=== PATIENT | female | born 1955 | race Caucasian/White ===

== ENCOUNTER → 2021-03-01 13:41 | Outpatient (BNVA) | payer MEDICARE, SELFPAY | PROVIDERS: Visit Provider Nurse Practitioner Family | DX: E78.5 Hyperlipidemia, unspecified (principal); I10 Essential (primary) hypertension; Z86.39 Personal history of other endocrine, nutritional and metabolic disease | CPT/HCPCS: 80053; 80061 ==

== ENCOUNTER 2023-01-24 08:30 | Outpatient (CLI) | payer MEDICARE, SELFPAY ==
--- NOTE | 2023-01-24 08:41 | XR_ITS ---
WS: [id number] Exam: XR knee LT 3V* [id number] Date/Time of Exam: 01/24/2023 8:53 AM Reason For Exam: M25.569 - Pain in unspecified knee No acute fracture or dislocation. Moderate degenerative narrowing of the medial joint compartment. No joint effusion. Spurring of the posterior patella. XR/XR knee LT 3V* [id number] IMPRESSION: 1. Moderate degenerative changes. 2. No fracture or joint effusion.
--- NOTE | 2023-01-24 08:41 | XR_ITS ---
WS: [id number] Exam: XR knee RT 3V* [id number] Date/Time of Exam: 01/24/2023 8:53 AM Reason For Exam: M25.569 - Pain in unspecified knee No acute fracture or dislocation. Moderate narrowing of the medial joint compartment. Spurring of the posterior patella. No joint effusion. XR/XR knee RT 3V* [id number] IMPRESSION: 1. Moderate degenerative changes. No fracture or joint effusion.
== END 2023-01-24 08:31 | disposition home or self-care (01) ==
PROVIDERS: PCP Nurse Practitioner Family; Visit Provider Nurse Practitioner Family
DX: M25.562 Pain in left knee (principal); M25.561 Pain in right knee; G89.29 Other chronic pain
CPT/HCPCS: 73562

== ENCOUNTER → 2024-01-06 11:30 | Outpatient (BNVA) | payer MEDICARE, SELFPAY | PROVIDERS: PCP Nurse Practitioner Family; Visit Provider Nurse Practitioner Family | DX: I10 Essential (primary) hypertension (principal); T63.461A Toxic effect of venom of wasps, accidental (unintentional), initial encounter; H10.9 Unspecified conjunctivitis; S90.569A Insect bite (nonvenomous), unspecified ankle, initial encounter; W57.XXXA Bitten or stung by nonvenomous insect and other nonvenomous arthropods, initial encounter | CPT/HCPCS: 80053; 80061 ==

== ENCOUNTER 2024-02-24 09:30 | Emergency (ER) | payer MEDICARE, SELFPAY ==
[2024-02-24 09:34] VITALS: PULSE 72; RESP 18; TEMP 36.6; O2SAT 95
--- NOTE | 2024-02-24 09:35 | CTR_ITS ---
PROCEDURE INFORMATION: Exam: CT Abdomen And Pelvis With Contrast Exam date and time: 02/24/2024 11:16 AM Age: 68 years old Clinical indication: Abdominal pain; Flank; Right; Prior surgery; Surgery date: 6+ months; Surgery type: Gb, hyst, spine; Additional info: Abd pain TECHNIQUE: Imaging protocol: Computed tomography of the abdomen and pelvis with contrast. Radiation optimization: All CT scans at this facility use at least one of these dose optimization techniques: automated exposure control; mA and/or kV adjustment per patient size (includes targeted exams where dose is matched to clinical indication); or iterative reconstruction. Contrast material: [id number]; Contrast volume: 100 ml; Contrast route: INTRAVENOUS (IV); COMPARISON: No relevant prior studies available. RADIATION DOSE METRICS: Total DLP (mGy-cm): 1201 FINDINGS: Liver: Normal. No mass. Gallbladder and biliary ducts: Cholecystectomy. Pancreas: Normal. No ductal dilation. Spleen: 14 cm splenomegaly. Adrenal glands: Normal. No mass. Kidneys and ureters: Moderately obstructing 3 x 6 mm calculus in the distal right ureter. Stomach and bowel: Diverticulosis without evidence of diverticulitis. Appendix: No evidence of appendicitis. Intraperitoneal space: Unremarkable. No free air. No significant fluid collection. Vasculature: Unremarkable. No abdominal aortic aneurysm. Lymph nodes: Unremarkable. No enlarged lymph nodes. Urinary bladder: Unremarkable as visualized. Reproductive: Unremarkable as visualized. Bones/joints: Lumbar laminectomy and posterior fusion. Soft tissues: Unremarkable. CT/CT abdomen pelvis w con* [id number] IMPRESSION: Moderately obstructing distal right ureteral calculus.
--- NOTE | 2024-02-24 09:37 | ED_ITS ---
HPI - Abdominal Pain 2 General: Chief Complaint: Abdominal Pain Stated Complaint: belly/flank pain Time Seen by Provider: 02/24/24 09:31 Source: patient Mode of arrival: ambulatory Limitations: no limitations History of Present Illness: 68-year-old female states over the last day she has been having upper abdominal and right flank pain. States pains been very sharp in nature worse with movement she has been having nausea and vomiting with the pain as well. Rates pain a 7 out of 10 currently she denies any fevers. Associated Symptoms: Reports nausea and vomiting; Denies chills, diarrhea and fever(s) Related Data Home Medications Medication Instructions Recorded Confirmed hydroxyzine HCl 25 mg tablet 25 mg PO TID PRN Itching 02/24/24 02/24/24 polymyxin B sulfate 10,000 1 drp ophthalmic (eye) QID PRN 02/24/24 02/24/24 unit-trimethoprim 1 mg/mL eye drops infection Previous Rx's Medication Instructions Recorded epinephrine 0.3 mg/0.3 mL 0.3 mg (0.3 mL) IM Q4H PRN 01/06/24 injection, auto-injector (EpiPen anaphylaxis #2 ea 2-Gerardo) hydrocodone 5 mg-acetaminophen 325 1 tab PO Q6H PRN pain #14 tabs 02/24/24 mg tablet ondansetron 4 mg disintegrating 4 mg PO Q6H PRN nausea and 02/24/24 tablet vomiting #14 tabs tamsulosin 0.4 mg capsule (Flomax) 0.4 mg PO DAILY #5 caps 02/24/24 Allergies Allergy/AdvReac Type Severity Reaction Status Date / Time cephalexin [From Keflex] Allergy ALGY-Hives Verified 02/05/24 09:50 Penicillins Allergy unknown Verified 02/05/24 09:50 venom-wasp Allergy unknown Verified 02/05/24 09:50 Review of Systems 2 Const: Denies: fever(s), chills, body aches or change in appetite ENMT: Denies: throat pain or dental pain Card: Denies: chest pain Resp: Denies: dyspnea GI: Reports: abdominal pain, nausea and vomiting; Denies: diarrhea Musc: Denies: neck pain or back pain Skin/Breast: Denies: rash Neuro: Denies: headache(s) PFS ED 2 PFSH: Medical History Hx of hyperlipidemia Hx of skin malignancy 2019 History of left heart catheterization Normal 2019 History of torn meniscus of knee both knees Surgical History History of hysterectomy total 2002 Hx of cholecystectomy 2003 History of spinal surgery 1999, 2008 Family History Mother CAD (coronary artery disease) Father CAD (coronary artery disease) Hypertension Stroke Denies family history of Diabetes Chronic kidney disease (CKD) Lung disease Cancer Social History Smoking and tobacco/nicotine status: former use of tobacco/nicotine Alcohol intake: never Substance/Drug Use: never Adopted: No Caregiver/support person: No Lives independently: Yes service: No Current occupational status: disabled Sexually active: Yes Do you think of yourself as: Straight/Heterosexual Current gender identity: Female Physical Exam 2 Const: COMMON NORMALS: no acute distress, patient oriented x3 and healthy appearing HENMT: COMMON NORMALS: normocephalic and atraumatic HEAD & SCALP: n ormocephalic and atraumatic Eye: COMMON NORMALS: Equal, round and reactive pupils present and EOMs intact bilaterally PUPIL: Yes Equal, round and reactive pupils present Neck/C-Spine: COMMON NORMALS: full ROM and supple Chest: COMMONS NORMALS: normal inspection of the chest and normal palpation of entire chest wall Resp: COMMON NORMALS: normal respiratory effort, No retractions, No use of accessory muscles and clear to auscultation bilaterally AUSCULTATION: clear to auscultation bilaterally Cardio: COMMON NORMALS: regular rate, regular rhythm and No murmurs present (Cardio) RATE: regular rate RHYTHM: regular rhythm GI: COMMON NORMALS: Normal to inspection, nondistended, normoactive bowel sounds present, Soft to palpation and no masses PALPATION: Yes Soft to palpation and Yes Tenderness to palpation present (GI) Details: RUQ Extremity: COMMON NORMALS: normal to inspection and full ROM Neuro: COMMON NORMALS: patient oriented x3, moves all extremities and no focal motor deficits Psych: COMMON NORMALS: mental status grossly normal, Normal thought process present and cooperative THOUGHT PROCESS: Normal thought process present Skin: COMMON NORMALS: no rashes or lesions noted and no wounds GENERAL SKIN EXAM: no rashes or lesions noted Course 2 Vital Signs: Vital signs: Vital Signs Temperature 97.8 F 02/24/24 12:44 Pulse Rate 65 02/24/24 12:44 Respiratory Rate 16 02/24/24 12:44 Blood Pressure 137/73 02/24/24 12:44 Pulse Oximetry 95 02/24/24 12:44 Oxygen Delivery Me thod Room Air 02/24/24 12:00 MDM - Abdominal Pain Medical Decision Making Patient presents here with flank pain she did have a kidney stone no signs of UTI her pains improved here we will prescribe her pain meds she is to follow-up with urology return if worsening she understands agrees to plan. Medical Records I reviewed the patient's medical records. Lab Data I reviewed the patient's lab results. 02/24/24 10:30 02/24/24 10:30 Labs/Radiology: Radiology Impressions Abdomen/Pelvis CT 02/24/24 09:35 IMPRESSION: Moderately obstructing distal right ureteral calculus. Laboratory Results WBC 6.50 10^3/uL (3.29-11.43) 02/24/24 10:30 RBC 4.55 10^6/uL (3.85-5.65) 02/24/24 10:30 Hgb 13.80 g/dL (11.27-16.99) 02/24/24 10:30 Hct 41.2 % (36-47) 02/24/24 10:30 MCV 90.5 fl (85-98) 02/24/24 10:30 MCH 30.3 pg (27-33) 02/24/24 10:30 MCHC 33.5 g/dL (30-55) 02/24/24 10:30 RDW 12.7 % (12.1-15.1) 02/24/24 10:30 Plt Count 185 10^3/cmm (157-399) 02/24/24 10:30 MPV 9.6 fL (7.4-10.4) 02/24/24 10:30 Neut % (Auto) 66.5 % 02/24/24 10:30 Lymph % (Auto) 22.2 % 02/24/24 10:30 [place] % (Auto) 8.5 % 02/24/24 10:30 Eos % (Auto) 2.0 % 02/24/24 10:30 Baso % (Auto) 0.5 % 02/24/24 10:30 Neut # (Auto) 4.33 10^3/uL (1.8-7.7) 02/24/24 10:30 Lymph # (Auto) 1.4 10^3/uL (0.8-4.8) 02/24/24 10:30 [place] # (Auto) 0.6 10^3/uL (0.2-0.9) 02/24/24 10:30 Eos # (Auto) 0.1 10^3/uL (0.0-0.8) 02/24/24 10:30 Baso # (Auto) 0.0 10^3/uL (0.0-0.1) 02/24/24 10:30 Nucleated RBC % (auto) 0 % 02/24/24 10:30 Nucleated RBCs # 0.0 /100WBC 02/24/24 10:30 Sodium 138 mmol/L (136-145) 02/24/24 10:30 Potassium 4.9 mmol/L (3.5-5.1) 02/24/24 10:30 Chloride 102 mmol/L (98-107) 02/24/24 10:30 Carbon Dioxide 24 mmol/L (22-29) 02/24/24 10:30 Anion Gap 16.9 (5-19) 02/24/24 10:30 BUN 19 mg/dL (8-23) 02/24/24 10:30 Creatinine 1.1 mg/dL (0.5-0.9) H 02/24/24 10:30 GFR Calculation 49.4 mL/min (90-130) L 02/24/24 10:30 Glucose 108 mg/dL (65-115) 02/24/24 10:30 Calculated Osmolality 289 mOsm/kg (285-295) 02/24/24 10:30 Calcium 8.9 mg/dL (8.5-10.5) 02/24/24 10:30 Total Bilirubin 0.9 mg/dL (0.15-1.2) 02/24/24 10:30 AST 22 U/L (0-32) 02/24/24 10:30 ALT 22 U/L (0-33) 02/24/24 10:30 Alkaline Phosphatase 112 U/L (35-105) H 02/24/24 10:30 Total Protein 6.3 g/dL (6.6-8.7) L 02/24/24 10:30 Albumin 4.2 g/dL (3.5-5.2) 02/24/24 10:30 Globulin 2.1 g/dL (1.3-4.6) 02/24/24 10:30 Lipase 239 U/L (13-60) H 02/24/24 10:30 Urine Color Yellow (Yellow) 02/24/24 10:02 Urine Appearance Clear (CLEAR) 02/24/24 10:02 Urine pH 5 (5-7) 02/24/24 10:02 Ur Specific [place] 1.020 (1.005-1.030) 02/24/24 10:02 Urine Protein Neg (Negative) 02/24/24 10:02 Urine Glucose (UA) Norm (Normal) 02/24/24 10:02 Urine Ketones Negative (Negative) 02/24/24 10:02 Urine Blood 2+ (Negative) H 02/24/24 10:02 Urine Nitrate Negative (Negative) 02/24/24 10:02 Urine Bilirubin Neg (Negative) 02/24/24 10:02 Urine Urobilinogen Norm mg/dL (Negative) 02/24/24 10:02 Ur Leukocyte Esterase Negative (Negative) 02/24/24 10:02 Urine RBC 0-4 /hpf (0-2) H 02/24/24 10:02 Urine WBC Rare /hpf (0-5) 02/24/24 10:02 Ur Squamous Epith Cells None /hpf (0-5) 02/24/24 10:02 Amorphous Sediment Not Reportable 02/24/24 10:02 Urine Bacteria None /hpf (NONE) 02/24/24 10:02 All radiology interpretation(s) finalized by discharge Discharge Plan Discharge Patient Disposition: Home Clinical Impression: Calculus of kidney Condition: Stable Prescriptions: New hydrocodone-acetaminophen 5-325 mg tablet 1 tab PO Q6H PRN (Reason: pain) Qty: 14 0RF ondansetron 4 mg tablet,disintegrating 4 mg PO Q6H PRN (Reason: nausea and vomiting) Qty: 14 0RF Flomax 0.4 mg capsule 0.4 mg PO DAILY Qty: 5 0RF No Action epinephrine [EpiPen 2-Gerardo] 0.3 mg/0.3 mL auto-injector 0.3 mg IM Q4H PRN (Reason: anaphylaxis) Qty: 2 0RF polymyxin B sulf-trimethoprim 10,000 unit- 1 mg/mL drops 1 drp ophthalmic (eye) QID PRN (Reason: infection) hydroxyzine HCl 25 mg tablet 25 mg PO TID PRN (Reason: Itching) Discharge Orders: Discharge ED (Routine); Ordered 02/24/24 Ordered By: Fabiana Zayas Referrals: Johnna Ramirez FNP [Primary Care Provider] - Discharge Diet: Advance as tolerated Discharge Activity: Resume usual activity Patient Instructions: Kidney Stones (ED) Coding Level of Care Code ED [employer] for Reece Oneal
[2024-02-24 09:39] VITALS: BP 182/77
[2024-02-24] MEDS: morphine 4 mg/mL SDV 1 mL IVP (10:05)
[2024-02-24] MEDS: ondansetron 2 mg/ML SDV 2 mL 4 MG IVP (10:05)
[2024-02-24 10:08] LABS: Charge for UA Resulting for Rev
[2024-02-24 10:09] VITALS: BP 152/74; PULSE 75; RESP 18; O2SAT 93
[2024-02-24 10:10] LABS: Bilirubin Urine Neg (Negative); Blood Urine 2+ (Negative); Glucose Urine UA Norm (Normal); Ketones Urine Negative (Negative); Leukocyte Esterase Urine Negative (Negative); Nitrate Urine Negative (Negative); Protein Urine Neg (Negative); UA Manual Slide Review YES; Urine Appearance Clear (CLEAR); Urine Color Yellow (Yellow); Urobilinogen Urine Norm (Negative); pH Urine 5 (5-7)
[2024-02-24 10:30] LABS: Add Urine Culture? No; RBC Urine 0-4 /hpf (0-2); WBC Urine RARE /hpf (0-5)
[2024-02-24 10:39] LABS: Basophils % 0.5 %; Eosinophils # 0.1 10^3/uL (0.0-0.8); Hematocrit 41.2 % (36-47); Lymphocytes # 1.4 10^3/uL (0.8-4.8); Lymphocytes % 22.2 %; Mean Corpuscular HGB Conc 33.5 g/dL (30-55); Mean Corpuscular Hemoglobin 30.3 pg (27-33); Mean Corpuscular Volume 90.5 fl (85-98); Mean Platelet Volume 9.6 fL (7.4-10.4); Monocytes # 0.6 10^3/uL (0.2-0.9); Monocytes % 8.5 %; Neutrophils # 4.33 10^3/uL (1.8-7.7); Neutrophils % 66.5 %; Nucleated Red Blood Cells % 0 %; Platelet Count 185 10^3/cmm (157-399); Red Blood Count 4.55 10^6/uL (3.85-5.65); Red Cell Distribution Width 12.7 % (12.1-15.1)
[2024-02-24 11:00] VITALS: BP 139/70; PULSE 61; RESP 18; O2SAT 92
[2024-02-24 11:00] LABS: Alanine Aminotransferase 22 U/L (0-33); Albumin Level 4.2 g/dL (3.5-5.2); Alkaline Phosphatase 112 U/L (35-105); Aspartate Amino Transferase 22 U/L (0-32); Blood Urea Nitrogen 19 mg/dL (8-23); Calcium 8.9 mg/dL (8.5-10.5); Carbon Dioxide 24 mmol/L (22-29); Chloride 102 mmol/L (98-107); Globulin 2.1 g/dL (1.3-4.6); Glomerular Filtration Rate 49.4 mL/min (90-130); Glucose 108 mg/dL (65-115); Lipase 239 U/L (13-60); Osmolality Calculated 289 mOsm/kg (285-295); Sodium 138 mmol/L (136-145); Total Bilirubin 0.9 mg/dL (0.15-1.2); Total Protein 6.3 g/dL (6.6-8.7)
[2024-02-24 11:05] LABS: Anion Gap 16.9 (5-19); Potassium 4.9 mmol/L (3.5-5.1)
[2024-02-24] MEDS: iohexol 350 mg/mL 500 mL Btl (per mL) IV (11:30)
[2024-02-24 12:00] VITALS: BP 129/90; PULSE 67; RESP 16; O2SAT 95
[2024-02-24] MEDS: HYDROcodone-acetaminophen 5-325 mg Tablet 1 TAB PO (12:36)
[2024-02-24] MEDS: ketorolac 30 mg/mL INJ 15 MG IVP (12:38)
[2024-02-24 12:44] VITALS: BP 137/73; PULSE 65; RESP 16; TEMP 36.6; O2SAT 95
--- NOTE | 2024-02-27 08:01 | DCPLANNER ---
faxed urology referral to [facility]
== END 2024-02-24 12:45 | disposition home or self-care (01) ==
PROVIDERS: Emergency Provider Emergency Medicine; PCP Nurse Practitioner Family
DX: N20.0 Calculus of kidney (principal); Z87.891 Personal history of nicotine dependence; E78.5 Hyperlipidemia, unspecified
CPT/HCPCS: 74177; 80053; 81003; 81015; 83690; 85025; 96374; 96375; 99285; J1885; J2270; J2405; Q9967

== ENCOUNTER → 2025-05-31 14:12 | Outpatient (BNVA) | payer MEDICARE, SELFPAY | PROVIDERS: PCP Nurse Practitioner Family; Visit Provider Nurse Practitioner Family | DX: B37.9 Candidiasis, unspecified (principal) | CPT/HCPCS: 87070; 87205 ==

== ENCOUNTER → 2025-06-10 09:18 | Outpatient (BNVA) | payer MEDICARE, SELFPAY | PROVIDERS: PCP Nurse Practitioner Family; Visit Provider Nurse Practitioner Family | DX: N76.0 Acute vaginitis (principal) | CPT/HCPCS: 87070; 87205 ==

== ENCOUNTER → 2025-06-24 08:06 | Outpatient (BNVA) | payer MEDICARE, SELFPAY | PROVIDERS: PCP Nurse Practitioner Family; Visit Provider Nurse Practitioner Family | DX: N76.0 Acute vaginitis (principal); I10 Essential (primary) hypertension; E55.9 Vitamin D deficiency, unspecified | CPT/HCPCS: 80053; 82306; 82607; 84443; 85025; 87070; 87077; 87186; 87205 ==

== ENCOUNTER → 2025-07-05 14:18 | Outpatient (BNVA) | payer MEDICARE, SELFPAY | PROVIDERS: PCP Nurse Practitioner Family; Visit Provider Registered Nurse | DX: N76.0 Acute vaginitis (principal) | CPT/HCPCS: 81000; 87070; 87205 ==